=== PATIENT | male | born 1940 | race Caucasian/White ===

== ENCOUNTER → 2023-07-20 10:13 | Outpatient (REF) | payer MEDICARE, OTHER, SELFPAY | LOC: DHCBS HW 10:13 | PROVIDERS: ATTENDING PHYSICIAN Internal Medicine Cardiovascular Disease; FAMILY PHYSICIAN Family Medicine | DX: I77.89 Other specified disorders of arteries and arterioles (principal) | CPT/HCPCS: 93306 ==

== ENCOUNTER → 2023-10-04 13:10 | Outpatient (REF) | payer MEDICARE, OTHER, SELFPAY | LOC: HWRAD 13:10 | PROVIDERS: ATTENDING PHYSICIAN Internal Medicine Cardiovascular Disease; FAMILY PHYSICIAN Family Medicine | DX: I77.89 Other specified disorders of arteries and arterioles (principal) | CPT/HCPCS: 93880 ==

== ENCOUNTER → 2024-04-25 16:31 | Outpatient (REF) | payer MEDICARE, OTHER, SELFPAY | LOC: MRI 3T 16:31 | PROVIDERS: ATTENDING PHYSICIAN Surgery; FAMILY PHYSICIAN Family Medicine | DX: R97.20 Elevated prostate specific antigen [PSA] (principal) | CPT/HCPCS: 72197; A9575 ==

== ENCOUNTER 2024-05-12 20:37 | Emergency (ER) | payer MEDICARE, OTHER, SELFPAY ==
[2024-05-12 20:41] VITALS: BP 182/110
[2024-05-12 21:02] LABS: Hematocrit 41.8 % (39.0-52.0); Hemoglobin 14.5 g/dL (13.0-18.0); Mean Corp Hgb Conc. 34.7 g/dL (33.0-37.0); Mean Corpuscular Hgb 31.9 pg (27.0-31.0); Mean Corpuscular Volume 92.1 fL (80.0-94.0); Platelet Count 218 10^3/uL (130-400); Red Blood Cell Count 4.54 10^6/uL (4.70-6.10); Red Cell Dist. Width 12.7 % (11.5-14.5); White Blood Cell Count 6.5 10^3/uL (4.8-10.8)
[2024-05-12 21:03] LABS: Urine Albumin Negative (Neg - Trace); Urine Bilirubin Negative (Negative); Urine Character Clear (Clear); Urine Color Yellow; Urine Glucose Negative (Negative); Urine Ketone Negative (Negative); Urine Leukocyte Negative (Negative); Urine Nitrite Negative (Negative); Urine Occult Blood Negative (Negative); Urine Specific Gravity 1.015 (<1.030); Urine Urobilinogen Negative (Neg - 1+); Urine pH 6.5 (5.0-9.0)
[2024-05-12 21:17] LABS: Blood Urea Nitrogen 17 mg/dl (9-20); Calcium 8.6 mg/dl (8.4-10.2); Carbon Dioxide 29 mmol/L (22-30); Chloride 100 mmol/L (98-107); Glucose 118 mg/dl (70-99); Potassium 4.2 mmol/L (3.5-5.1); Sodium 135 mmol/L (135-145); eGFR > 60.00
[2024-05-12 21:40] VITALS: BMI 31.9
[2024-05-12 21:46] VITALS: BP 132/71
[2024-05-12 22:00] VITALS: BP 138/76
--- NOTE | 2024-05-12 22:14 | ED.GENMED ---
History of Present Illness
General
Chief Complaint: Male Genito-Urinary Symptoms
Source: patient and spouse
Exam Limitations: none
Time Seen by Provider: 05/12/24 21:56
Nursing documentation reviewed up to this point in time: agreed with
History of Present Illness
History of Present Illness:
84-year-old male presents emergency department due to difficulty urinating. He denies any fevers. This began earlier today, but he has been having problems over the past week. He has a history of prostate cancer and is getting evaluated by
[facility], and follows with Dr. Jacob.
Past History
Past History
ED Past Medical History: HTN, Hypercholesterolemia and Other (PE DVT)
ED Past Surgical History: Orthopedic (Left shoulder) and Other (Hernia repair)
Social History
Tobacco: Non-smoker
Alcohol: Daily
Drug: None
Personal:
Living: with family
Employment: Employed
Family History
Family History: Other
Review of Systems
Review of Systems
Allergies reviewed?: Yes
All Other Systems: Not applicable
Constitutional: Reports no symptoms
EENT: Reports no symptoms
Respiratory: Reports no symptoms
Cardiac: Reports no symptoms
ABD/GI: Reports no symptoms
: Reports difficulty voiding
Musculoskeletal: Reports no symptoms
Skin: Reports no symptoms
Neurological: Reports no symptoms
Endocrine: Reports no symptoms
Hematologic/Lymphatic: Reports no symptoms
Psychiatric: Reports no symptoms
Phy Exam
Physical Exam
Physical Exam:
Physical Exam
General: no apparent distress, not acutely ill
Neck: supple. no meningeal signs. normal posterior pharynx
Heart: s1/s2 regular rate and rhythm, no murmur. equal radial
pulses.
HEENT: Pupils equal round reactive to light, EOMI
Lungs: no acute respiratory distress. clear bilaterally
Abdomen: normal bowel sounds. not tender. no CVAT
Neuro: alert and oriented. no focal neurological deficits cranial nerves II through XII intact
Skin: no rash
Psychiatric: well kept. interactive and cooperative
Extremities: no edema. no calf tenderness. negative homans. good distal pulses
Course
Orders/Labs/Results
Orders:
Orders
05/12/24 20:53
Basic Metabolic Panel Urgent
Complete Blood Count/No Diff Urgent
05/12/24 20:56
Urinalysis Reflex To Culture Urgent
Date Specimen was Collected: 05/12/24
Time Specimen was Collected: 20:47
05/12/24 22:04
Bladder Scan- Treatment ONCE
05/12/24 22:14
Tay Placement- Treatment ONCE
Reason for insertion: Acute Retention
Abnormal Lab Results
05/12/24
20:53
RBC 4.54 L 10^6/uL
(4.70-6.10)
MCH 31.9 H pg
(27.0-31.0)
Glucose 118 H mg/dl
(70-99)
05/12/24 20:53
05/12/24 20:53
Vital Signs
Initial and Last Documented VS:
Initial Vital Signs
Temp Pulse Resp BP Pulse Ox
97.6 F 90 24 182/110 96
05/12/24 20:41 05/12/24 20:41 05/12/24 20:41 05/12/24 20:41 05/12/24 20:41
Last Documented Vital Signs
Temp Pulse Resp BP Pulse Ox
97.6 F 90 24 138/76 94
05/12/24 20:41 05/12/24 20:41 05/12/24 20:41 05/12/24 22:00 05/12/24 22:00
MDM/Problems Addressed
Differential Diagnosis Includes:
UTI, urinary retention
MDM/Problems Addressed:
84-year-old male with urinary retention. Normal kidney function and UA. Follow-up with Dr. Jacob.
Chronic conditions affecting care: Cancer (Prostate)
*Pulse Oximetry
Patient hypoxic: no
*Critical Care Note
Total Time (30-74mins, 75-104mins- exclusive of procedures): Not Applicable
Data Reviewed
Review of Other/Old Records Reveals: Labs (Prior creatinine 0.9 on 05/09/2023)
Source: records
Patient Management
Social determinants of health affecting care: Living situation and Strong social support
Escalation/DeEscalation of care consider admission/obs:
Admit not indicated
ED Attending Note
-
Portions of this chart may have been created with voice recognition software.� Occasional wrong word or��sound alike� substitutions may have occurred due to the inherent limitations of voice recognition software.
Discharge Plan
Departure
Patient Disposition: Home (Routine Discharge)
Date of Disposition: 05/12/24
Time of Disposition: 22:26
Patient with high blood pressure during this ER visit?: Yes
Condition: Good
Discharge Problem:
Acute urinary retention
Instructions: How to Care for Your Tay Catheter, Male, Urinary Retention (DC), BLOOD PRESSURE
Prescriptions:
No Action
atorvastatin 10 MG tablet
10 mg PO QPM
lisinopril 2.5 MG tablet
2.5 mg PO DAILY
Eliquis 5 MG tablet
5 mg PO BID
oxycodone-acetaminophen [Percocet] 5-325 mg tablet
1 - 2 tab PO Q6HPRN PRN (Reason: pain) Qty: 14 0RF
multivitamin Tablet
1 tab PO DAILY
acetaminophen [Tylenol Extra Strength] 500 mg Capsule
500 mg PO BID
Referrals:
Po Jacob MD [Active] - Call in 1-3 days for appt
Kiki Live MD [Family Provider] -
Interventions
Interventions:
*Risk Screen - Suicide Last Done: 05/12/24 20:41
*General Assessment Last Done: 05/12/24 21:41
*Neglect/Abuse Screening Last Done: 05/12/24 20:41
ED- Fall Risk Assessment Last Done: 05/12/24 21:42
*ED COVID-19 Vaccine History Last Done: 05/12/24 21:41
ED-Male Genitourinary Assessment Last Done: 05/12/24 21:42
Discharge Date and Time
Print Language: ROMANIAN
== END 2024-05-12 23:03 | disposition home or self-care (01) ==
LOC: EMR 20:37
PROVIDERS: EMERGENCY PHYSICIAN Emergency Medicine; FAMILY PHYSICIAN Family Medicine
DX: R33.9 Retention of urine, unspecified (principal); R35.0 Frequency of micturition; C61 Malignant neoplasm of prostate; I10 Essential (primary) hypertension; E78.00 Pure hypercholesterolemia, unspecified; M19.90 Unspecified osteoarthritis, unspecified site; Z86.718 Personal history of other venous thrombosis and embolism; Z86.16 Personal history of COVID-19; Z86.711 Personal history of pulmonary embolism; Z79.01 Long term (current) use of anticoagulants
CPT/HCPCS: 99284; 51702; 51798; 80048; 81003; 85027

== ENCOUNTER → 2024-05-28 12:34 | Outpatient (REF) | payer MEDICARE, OTHER, SELFPAY | LOC: CLAB 12:34 | PROVIDERS: ATTENDING PHYSICIAN Surgery | DX: R97.20 Elevated prostate specific antigen [PSA] (principal) | CPT/HCPCS: 88305; 88344 ==

== ENCOUNTER → 2024-06-19 15:56 | Outpatient (REF) | payer MEDICARE, OTHER, SELFPAY ==
[2024-06-19 12:01] LABS: % Basophils 0.6 % (0-2); % Eosinophils 3.7 % (0-6); % Immature Granulocytes 0.2 % (0-0.5); % Lymphocytes 30.6 % (20.5-51.1); % Monocytes 12.3 % (1.7-9.3); % Neutrophils 52.6 % (42.2-75.2); Absolute Eosinophils 0.2 10^3/uL (0-0.7); Absolute Lymphocytes 1.5 10^3/uL (1.2-3.4); Absolute Monocytes 0.6 10^3/uL (0.1-0.6); Absolute Neutrophils 2.5 10^3/uL (1.4-6.5); Hematocrit 41.1 % (39.0-52.0); Hemoglobin 13.9 g/dL (13.0-18.0); Mean Corp Hgb Conc. 33.8 g/dL (33.0-37.0); Mean Corpuscular Hgb 31.3 pg (27.0-31.0); Mean Corpuscular Volume 92.6 fL (80.0-94.0); Mean Platelet Volume 10.2 fL (7.4-10.4); Platelet Count 201 10^3/uL (130-400); Red Blood Cell Count 4.44 10^6/uL (4.70-6.10); Red Cell Dist. Width 12.5 % (11.5-14.5); White Blood Cell Count 4.8 10^3/uL (4.8-10.8)
[2024-06-19 12:42] LABS: ALT (SGPT) 19 U/L (0-50); AST (SGOT) 26 U/L (17-59); Albumin 3.7 g/dl (3.5-5.0); Alkaline Phosphatase 109 U/L (38-126); Blood Urea Nitrogen 19 mg/dl (9-20); Calcium 9.2 mg/dl (8.4-10.2); Carbon Dioxide 28 mmol/L (22-30); Chloride 104 mmol/L (98-107); Glucose 101 mg/dl (70-99); Potassium 4.8 mmol/L (3.5-5.1); Sodium 137 mmol/L (135-145); Total Bilirubin 0.7 mg/dl (0.2-1.3); Total Protein 6.3 g/dl (6.3-8.2); eGFR > 60.00
== END ==
LOC: OIDL 15:56
PROVIDERS: ATTENDING PHYSICIAN Internal Medicine Hematology & Oncology
DX: I82.401 Acute embolism and thrombosis of unspecified deep veins of right lower extremity (principal); C61 Malignant neoplasm of prostate
CPT/HCPCS: 80053; 84153; 85025

== ENCOUNTER → 2024-09-17 14:32 | Outpatient (REF) | payer MEDICARE, OTHER, SELFPAY ==
[2024-09-17 15:09] LABS: Urine Albumin 3+ (Neg - Trace); Urine Bilirubin Negative (Negative); Urine Character Clear (Clear); Urine Color Yellow; Urine Glucose Negative (Negative); Urine Ketone Negative (Negative); Urine Leukocyte 1+ (Negative); Urine Nitrite Negative (Negative); Urine Occult Blood Negative (Negative); Urine Urobilinogen Negative (Neg - 1+)
[2024-09-17 15:25] LABS: Urine Mucus Few; Urine Red Blood Cell 0-2 /HPF (0-2)
== END ==
LOC: REG 14:32
PROVIDERS: ATTENDING PHYSICIAN Family Medicine Geriatric Medicine; FAMILY PHYSICIAN Family Medicine
DX: R30.0 Dysuria (principal); R33.9 Retention of urine, unspecified; Z87.440 Personal history of urinary (tract) infections
CPT/HCPCS: 81003; 81015; 87086

== ENCOUNTER → 2024-09-19 10:29 | Outpatient (REF) | payer MEDICARE, OTHER, SELFPAY ==
[2024-09-19 17:08] LABS: Urine Albumin 3+ (Neg - Trace); Urine Bilirubin 1+ (Negative); Urine Character Clear (Clear); Urine Color Yellow; Urine Glucose Negative (Negative); Urine Ketone Negative (Negative); Urine Leukocyte Negative (Negative); Urine Nitrite Positive (Negative); Urine Occult Blood Negative (Negative); Urine Specific Gravity 1.005 (<1.030); Urine Urobilinogen 1+ (Neg - 1+)
[2024-09-19 17:15] LABS: Urine Squamous Cell 0-2 /LPF (Few)
[2024-09-19 17:16] LABS: Urine Red Blood Cell 0-2 /HPF (0-2)
[2024-09-19 17:17] LABS: Urine Bacteria Few (Negative)
== END ==
LOC: CLAB 10:29
PROVIDERS: ATTENDING PHYSICIAN Surgery
DX: R39.9 Unspecified symptoms and signs involving the genitourinary system (principal)
CPT/HCPCS: 81003; 81015; 87086

== ENCOUNTER 2025-01-07 07:26 | Outpatient (RCR) | payer MEDICARE, OTHER, SELFPAY | END 2025-01-07 23:59 | disposition home or self-care (01) | LOC: RPT 07:26 | PROVIDERS: ATTENDING PHYSICIAN Family Medicine Geriatric Medicine; FAMILY PHYSICIAN Family Medicine | DX: R15.2 Fecal urgency (principal); N39.3 Stress incontinence (female) (male); M62.89 Other specified disorders of muscle; R39.15 Urgency of urination; Z73.6 Limitation of activities due to disability; C61 Malignant neoplasm of prostate; Z92.3 Personal history of irradiation | CPT/HCPCS: 97163; 97530 ==

== ENCOUNTER 2025-02-11 07:48 | Outpatient (RCR) | payer MEDICARE, OTHER, SELFPAY | END 2025-02-11 23:59 | disposition home or self-care (01) | LOC: RPT 07:48 | PROVIDERS: ATTENDING PHYSICIAN Family Medicine Geriatric Medicine; FAMILY PHYSICIAN Family Medicine | DX: R15.2 Fecal urgency (principal); N39.3 Stress incontinence (female) (male); M62.89 Other specified disorders of muscle; R39.15 Urgency of urination; Z73.6 Limitation of activities due to disability; C61 Malignant neoplasm of prostate; Z92.3 Personal history of irradiation | CPT/HCPCS: 97110; 97112; 97530 ==

== ENCOUNTER 2025-03-06 13:34 | Outpatient (RCR) | payer MEDICARE, OTHER, SELFPAY | END 2025-03-06 23:59 | disposition home or self-care (01) | LOC: RPT 13:34 | PROVIDERS: ATTENDING PHYSICIAN Family Medicine Geriatric Medicine; FAMILY PHYSICIAN Family Medicine | DX: R15.2 Fecal urgency (principal); N39.3 Stress incontinence (female) (male); M62.89 Other specified disorders of muscle; R39.15 Urgency of urination; Z73.6 Limitation of activities due to disability; C61 Malignant neoplasm of prostate; R26.89 Other abnormalities of gait and mobility; Z92.3 Personal history of irradiation | CPT/HCPCS: 97110; 97112; 97530 ==

== ENCOUNTER 2025-04-08 12:27 | Outpatient (RCR) | payer MEDICARE, OTHER, SELFPAY | END 2025-04-09 06:08 | disposition home or self-care (01) | LOC: RPT 12:27 | PROVIDERS: ATTENDING PHYSICIAN Family Medicine Geriatric Medicine; FAMILY PHYSICIAN Family Medicine | DX: R15.2 Fecal urgency (principal); N39.3 Stress incontinence (female) (male); M62.89 Other specified disorders of muscle; R39.15 Urgency of urination; Z73.6 Limitation of activities due to disability; C61 Malignant neoplasm of prostate; R26.89 Other abnormalities of gait and mobility; Z92.3 Personal history of irradiation | CPT/HCPCS: 97110; 97530 ==